=== PATIENT | male | born 1930 | race Caucasian/White ===

== ENCOUNTER 2017-11-23 08:21 | Emergency (ER) | payer OTHER, BC ==
[~2017-11-23] VITALS: Ht 182.9 cm; Wt 92.2 kg
[~2017-11-23 08:21] MED LIST: ASPIRIN81 M1 PO; BYSTOLIC5 MG PO; CAPTOPRIL HCTZ PO; Coumadin dosing per PO; ENDOCET 5-3251 EACH PO; FLOMAX0.4 M1 PO; Flomax PO; GLIPIZIDE5 M1 PO; GLUCOPHAGE500 MG PO; MELOXICAM7.5 MG PO; PROTONIX40 MG PO; VOLTAREN100 GM TP
[2017-11-23 09:12] LABS: BASOPHIL (%) 0.8 % (0-1); EOSINOPHIL (%) 2.1 % (0-5); EOSINOPHIL COUNT 0.1 K/uL (0-0.3); HEMATOCRIT 40.4 % (38.0-50.0); IMMATURE GRANULOCYTE (%) 0.3 % (0.0-0.7); LYMPHOCYTE (%) 22.7 % (15-42); LYMPHOCYTE COUNT 0.9 K/uL (1.0-2.8); MCH 30.7 PG (29.0-34.0); MCHC 32.2 G/DL (30.0-36.0); MCV 95.3 FL (86-99); MONOCYTE (%) 13.1 % (3-12); MONOCYTE COUNT 0.5 K/uL (0-0.8); NEUTROPHIL COUNT 2.3 K/uL (1.8-6.4); PLATELET COUNT 174 K/uL (156-360); RBC DIS.WIDTH-CV 14.8 % (11.8-14.6); RBC DIS.WIDTH-SD 51.8 % (39-53); RED BLOOD COUNT 4.24 M/uL (4.00-5.50); WHITE BLOOD COUNT 3.8 K/uL (4.1-10.2)
[2017-11-23 09:22] LABS: ALBUMIN 3.7 g/dL (3.2-4.8); CHLORIDE 103 mEq/L (99-109); POTASSIUM 4.4 mEq/L (3.7-5.4); SODIUM 141 mEq/L (136-147)
[2017-11-23 09:24] LABS: GLUCOSE 88 mg/dL (70-99); TOTAL PROTEIN 7.6 g/dL (6.4-8.3)
[2017-11-23 09:26] LABS: TOTAL BILIRUBIN 0.6 mg/dL (0.0-1.0)
[2017-11-23 09:28] LABS: ALKALINE PHOSPHATASE 55 IU/L (3-129); CREATININE 1.3 mg/dL (0.6-1.3); GFR ESTIMATE (CALCULATED) 56 mL/min/ (58.99-99999)
[2017-11-23 09:29] LABS: AST (GOT) 25 IU/L (2-34); UREA NITROGEN (BUN) 20 mg/dL (9-23)
[2017-11-23 09:31] LABS: ALT (GPT) 13 IU/L (3-49)
[2017-11-23 09:40] LABS: APPEARANCE CLEAR ((CLEAR)); BILIRUBIN NEGATIVE; BLOOD NEGATIVE; COLOR YELLOW ((YELLOW)); GLUCOSE (STRIP) NEGATIVE; KETONES NEGATIVE; LEUKOCYTES NEGATIVE; NITRITE NEGATIVE; PROTEIN (STRIP) NEGATIVE; SPECIFIC GRAVITY 1.014 (1.000-1.030); UROBILINOGEN 0.2 MG/DL (0.2-1.0)
[2017-11-23 10:14] LABS: INTER. NORMALIZED RATIO 2.6
[2017-11-23 11:15] VITALS: BP 162/82
[2017-11-23 12:31] LABS: HEMOGLOBIN A1c (GLYCOHEMOGLOB) 5.5 % (Below 5.7)
== END 2017-11-23 11:17 | disposition home or self-care (01) ==
LOC: EME 08:21
PROVIDERS: Emergency Medicine
DX: R19.5 Other fecal abnormalities (principal); Z86.718 Personal history of other venous thrombosis and embolism; Z79.01 Long term (current) use of anticoagulants; E11.9 Type 2 diabetes mellitus without complications; E78.5 Hyperlipidemia, unspecified; I10 Essential (primary) hypertension; Z79.84 Long term (current) use of oral hypoglycemic drugs
CPT/HCPCS: 80053; 81003; 83036; 85025; 85610; 99281; 99284